=== PATIENT | female | born 1960 | race Caucasian/White ===

== ENCOUNTER → 2018-01-11 | Outpatient (CLI) | payer OTHER ==
[~2018-01-11] MED LIST: ACET500 PO; ACETAMINOPHEN; ALBU90OI INH; ALBU90OI61 INH; AMOCLA500 PO; AMOX500 PO; AZAT50 PO; Augmentin 875-1 EACH PO; BACL10 PO; BENZ100A PO; BIEST PO; BUPR75 PO; CHOL10002 PO; CONESTTC VAG; DESV50 PO; DIAZ10 PO; DULO60 PO; ESCI10; FISH1000 PO; GABA400; HYDACE5 PO; HYDACE5325 PO; HYDR1TAB94 PO; IBUP800 PO; Inderal 20 mg T20 MG PO; LEVFLO500 PO; LINE600 PO; LORA.5 PO; MAGCIT300 PO; MECL12.5; MECL25 PO; MEDIFIN EX100 MG/5 M PO; MELO7.5 PO; METHI10; METHI10 PO; METPHE10 PO; METPHE20; Methimazole5 MG PO; NAPROXEN; NORT25 PO; OXYACE5T PO; OXYC30 PO; PHENA200 PO; PRED20 PO; PREG150 PO; PROM25 PO; PROP10; Prednisone20 MG PO; RXOXYACE PO; SERT100; SULTRIDS PO; Sudogest30 MG PO; TOBR.3OPO OP; TUMERIC; Vicoprofen 2001 EACH PO; [UNRECOGNIZED DRUG - OTHER]
== END | disposition home or self-care (01) ==
LOC: LAB SHORT 09:46 → LAB EV 09:46
DX: N39.0 Urinary tract infection, site not specified (principal)
CPT/HCPCS: 87077; 87086; 87186

== ENCOUNTER 2018-02-16 09:35 | Emergency (ER) | payer OTHER ==
[~2018-02-16] VITALS: Ht 167.6 cm; Wt 83.5 kg
[2018-02-16] MEDS ORDERED: CLARITIN10 MG PO (09:47)
[2018-02-16] MEDS ORDERED: BACL10 PO (09:48)
[2018-02-16] MEDS ORDERED: TRAZ100 PO (09:48)
[2018-02-16] MEDS ORDERED: LEVSOD100 PO (09:49)
== END 2018-02-16 10:24 | disposition home or self-care (01) ==
LOC: ER 09:35
DX: D17.24 Benign lipomatous neoplasm of skin and subcutaneous tissue of left leg (principal); Z79.899 Other long term (current) drug therapy; F43.10 Post-traumatic stress disorder, unspecified; Z87.891 Personal history of nicotine dependence
CPT/HCPCS: 99282

== ENCOUNTER → 2018-03-10 | Outpatient (CLI) | payer OTHER ==
[~2018-03-10] MED LIST changes: +CLARITIN10 MG PO; +LEVSOD100 PO; +TRAZ100 PO
== END | disposition home or self-care (01) ==
LOC: LAB SHORT 10:57 → LAB EV 10:57
DX: N39.0 Urinary tract infection, site not specified (principal)
CPT/HCPCS: 87086

== ENCOUNTER 2018-03-22 11:15 | Emergency (ER) | payer OTHER ==
[~2018-03-22] VITALS: Ht 165.1 cm; Wt 83.9 kg
[~2018-03-22 11:15] MED LIST changes: +Flonase 0.05% N16 GM
[2018-03-22] MEDS ORDERED: Norco 5-325 Ta1 EACH PO (13:09)
== END 2018-03-22 13:20 | disposition home or self-care (01) ==
LOC: ER 11:15
DX: M54.2 Cervicalgia (principal); Z88.1 Allergy status to other antibiotic agents; Z79.899 Other long term (current) drug therapy; F43.10 Post-traumatic stress disorder, unspecified; Z87.891 Personal history of nicotine dependence
CPT/HCPCS: 96372; 99283; J1885

== ENCOUNTER → 2018-06-22 | Outpatient (CLI) | payer OTHER ==
[~2018-06-22] MED LIST changes: +ALL DAY ALLERGY10 M1 PO; +Norco 5-325 Ta1 EACH PO; +Norco 7.5-3251 EACH PO; +Tessalon200 MG PO
[2018-06-22 10:45] LABS: BASOPHILS ABSOLUTE AUTO 0.08 K/mm3 (0.00-0.23); BASOPHILS PERCENT AUTO 1 % (0-2); EOSINOPHILS ABSOLUTE AUTO 0.33 K/mm3 (0.00-0.68); EOSINOPHILS PERCENT AUTO 4 % (0-6); Hematocrit 40.2 % (33.0-51.0); Hemoglobin 14.3 g/dL (11.5-16.0); IMMATURE GRAN ABSOLUTE AUTO 0.05 K/mm3 (0.00-0.10); IMMATURE GRAN PERCENT AUTO 1 % (0-1); LYMPHOCYTES PERCENT AUTO 21 % (21-46); MONOCYTES ABSOLUTE AUTO 0.49 K/mm3 (0.16-1.47); MONOCYTES PERCENT AUTO 6 % (4-13); Mean Corpuscular HGB 34.5 pg (26.0-34.0); Mean Corpuscular HGB Conc 35.6 g/dL (31.5-36.5); Mean Corpuscular Volume 97 fL (80-100); Mean Platelet Volume 11.3 fL (9.1-12.4); NEUTROPHILS ABSOLUTE AUTO 6.08 K/mm3 (1.96-9.15); NEUTROPHILS PERCENT AUTO 68 % (41-73); Platelet Count 151 K/mm3 (150-400); RDW Coefficient Variation 12.2 % (11.7-14.2); RDW Standard Deviation 43.5 fL (35.1-46.3); Red Blood Cell Count 4.14 M/mm3 (3.80-5.20); White Blood Cell Count 8.93 K/mm3 (4.00-11.30)
[2018-06-22 11:01] LABS: Anion Gap 12 mmol/L (6-16); Blood Urea Nitrogen 10 mg/dL (8-24); CO2, Blood 25 mmol/L (21-32); Calcium, Blood 8.9 mg/dL (8.5-10.1); Chloride, Blood 104 mmol/L (98-108); Creatinine, Blood 0.77 mg/dL (0.40-1.00); Glomerular Filtration Rate >60 (60-); Glucose, Blood 95 mg/dL (70-99); Potassium, Blood 3.5 mmol/L (3.5-5.5); Sodium, Blood 141 mmol/L (136-145); Troponin I <0.017 ng/mL (0.000-0.040)
== END | disposition home or self-care (01) ==
LOC: LAB SHORT 10:38 → LAB EV 10:38
PROVIDERS: Physician Assistant Surgical
DX: R05 Cough (principal)
CPT/HCPCS: 80048; 84484; 85025

== ENCOUNTER 2018-07-20 09:54 | Emergency (ER) | payer OTHER ==
[~2018-07-20] VITALS: Ht 167.6 cm; Wt 86.2 kg
[~2018-07-20 09:54] MED LIST changes: -Norco 7.5-3251 EACH PO
[2018-07-20] MEDS ORDERED: Norco 7.5-3251 EACH PO (11:46)
== END 2018-07-20 11:52 | disposition home or self-care (01) ==
LOC: ER 09:54
DX: G89.29 Other chronic pain (principal); M54.5 Low back pain; Z88.1 Allergy status to other antibiotic agents; Z88.5 Allergy status to narcotic agent; Z79.899 Other long term (current) drug therapy; F43.10 Post-traumatic stress disorder, unspecified; Z87.891 Personal history of nicotine dependence
CPT/HCPCS: 96372; 99283-25; J1170; J1885

== ENCOUNTER 2018-10-11 06:45 | Day surgery (SDC) | payer OTHER ==
[~2018-10-11] VITALS: Ht 167.6 cm; Wt 83.0 kg
[~2018-10-11 06:45] MED LIST changes: +Norco 7.5-3251 EACH PO
[2018-10-11] MEDS ORDERED: GABA400 PO (07:18)
[2018-10-11] MEDS ORDERED: PENNSAID2 GM TOP (07:19)
--- NOTE | 2018-10-11 07:26 | NUR ---
10/11/18 0726 Pricila Eid V PT RESTING IN BED, SIDE RAILS IN PLACE, CALL LIGHT WITHIN REACH, VSS. PT'S FAMILY AT BEDSIDE. PT DENIES PAIN, DISCOMFORT AND QUESTIONS AT THIS TIME. WARM BLANKET GIVEN FOR COMFORT.
--- NOTE | 2018-10-11 14:34 | NUR ---
10/11/18 1434 Debbie Gonzalez LATE ENTRY FOR TODAY DURING COLONOSCOPY COLONOSCOPY ABORTED DUE TO POOR PREP.
== END 2018-10-11 08:45 | disposition home or self-care (01) ==
LOC: ORSCSDS 06:45
PROVIDERS: Internal Medicine Gastroenterology
PROC: 0DJ08ZZ Inspection of Upper Intestinal Tract, Via Natural or Artificial Opening Endoscopic (ICD-10-PCS; principal; 2018-10-11 08:00)
PROC: 0DJD8ZZ Inspection of Lower Intestinal Tract, Via Natural or Artificial Opening Endoscopic (ICD-10-PCS; principal; 2018-10-11 08:00)
DX: Z13.810 Encounter for screening for upper gastrointestinal disorder (principal); I86.4 Gastric varices; K74.60 Unspecified cirrhosis of liver; Z86.010 Personal history of colon polyps; B19.20 Unspecified viral hepatitis C without hepatic coma; E05.90 Thyrotoxicosis, unspecified without thyrotoxic crisis or storm; F41.1 Generalized anxiety disorder; Z87.891 Personal history of nicotine dependence; G47.33 Obstructive sleep apnea (adult) (pediatric); J44.9 Chronic obstructive pulmonary disease, unspecified; Z79.899 Other long term (current) drug therapy
CPT/HCPCS: J0330; J1980; J2405; J2704; J7120

== ENCOUNTER 2018-12-08 09:52 | Emergency (ER) | payer OTHER ==
[~2018-12-08] VITALS: Ht 167.6 cm; Wt 85.7 kg
[~2018-12-08 09:52] MED LIST changes: +GABA400 PO; +PENNSAID2 GM TOP
[2018-12-08] MEDS ORDERED: CYCL10 PO (10:43)
[2018-12-08] MEDS ORDERED: Percocet 5-3251 EACH PO ×2 (10:43→11:48)
== END 2018-12-08 11:15 | disposition home or self-care (01) ==
LOC: ER 09:52
DX: G89.29 Other chronic pain (principal); M54.5 Low back pain; Z88.8 Allergy status to other drugs, medicaments and biological substances; Z79.899 Other long term (current) drug therapy; Z87.440 Personal history of urinary (tract) infections; Z87.891 Personal history of nicotine dependence
CPT/HCPCS: 96374; 99283-25; J1170

== ENCOUNTER 2019-01-17 14:25 | Emergency (ER) | payer OTHER ==
[~2019-01-17] VITALS: Ht 167.6 cm; Wt 83.0 kg
[~2019-01-17 14:25] MED LIST changes: +CYCL10 PO; +Percocet 5-3251 EACH PO
[2019-01-17] MEDS ORDERED: Robaxin500 MG PO (15:25)
[2019-01-24] MEDS ORDERED: TRAZ100 PO (10:19)
[2019-01-24] MEDS ORDERED: LEVSOD100 PO (10:19)
[2019-01-24] MEDS ORDERED: DULO60 PO (10:19)
[2019-01-24] MEDS ORDERED: AZAT50 PO (10:20)
[2019-01-24] MEDS ORDERED: Flonase 0.05% N16 GM (10:20)
[2019-01-24] MEDS ORDERED: ACET500 PO (10:21)
[2019-01-24] MEDS ORDERED: Tessalon200 MG PO (10:21)
[2019-01-24] MEDS ORDERED: BACL10 PO (10:21)
[2019-01-24] MEDS ORDERED: TRAM50 PO (10:22)
[2019-01-24] MEDS ORDERED: GABA300 PO (10:22)
[2019-01-24] MEDS ORDERED: ALL DAY ALLERGY10 M1 PO (10:22)
== END 2019-01-17 15:39 | disposition home or self-care (01) ==
LOC: ER 14:25
DX: M54.41 Lumbago with sciatica, right side (principal); G89.29 Other chronic pain; M19.90 Unspecified osteoarthritis, unspecified site; F43.10 Post-traumatic stress disorder, unspecified; Z88.8 Allergy status to other drugs, medicaments and biological substances; Z79.899 Other long term (current) drug therapy; Z86.19 Personal history of other infectious and parasitic diseases; Z87.891 Personal history of nicotine dependence
CPT/HCPCS: 96372; 99283-25; J1885

== ENCOUNTER 2019-01-31 12:36 | Day surgery (SDC) | payer OTHER ==
[~2019-01-31] VITALS: Ht 167.6 cm; Wt 83.5 kg
[~2019-01-31 12:36] MED LIST changes: +GABA300 PO; +Robaxin500 MG PO; +TRAM50 PO
[2019-01-31] MEDS ORDERED: NADO20 PO (13:18)
[2019-01-31] MEDS ORDERED: PROP10 PO (13:19)
--- NOTE | 2019-01-31 14:16 | NUR ---
01/31/19 1416 Mari Rodríguez REPORT RECEIVED FROM BRITNEY KATHLEEN. WENT DOWN AND INTRODUCED MYSELF TO THE PATIENT. AFTER CHATTING, SHE ASKED TO GO TO THE BATHROOM SO I ASSISTED HER UP AND BACK. GAVE HER A WARM BLANKET AND GOT HER SITUATED BACK IN BED. UPDATED HER THAT THE ROOM IS RUNNING A LITTLE BEHIND AND SHE VERBALIZED HER UNDERSTANDING
--- NOTE | 2019-01-31 16:16 | NUR ---
01/31/19 4026 Mari Rodríguez LATE ENTRY---PATIENT DID HAVE DISTENDED ABDOMEN AND DID C/O PAIN THAT SHE RATED 4/10. SHE EXPLAINED THAT SHE FELT LIKE "THERE IS AIR IN MY BELLY". I EXPLAINED TO HER ABOUT THE CO2 THAT IS USED TO INFLATE THE COLON. I ASKED HER IF THE 4/10 WAS TOLERABLE LEVEL FOR HER AND SHE STATED YES THAT SHE WOULD JUST TAKE SOME TYLENOL WHEN SHE GOT HOME. I EXPLAINED TO HER AND HER SPOUSE THAT IF PAIN INCREASED SHE SHOULD CALL DR SEXTON LATER THIS EVENING. AND SPOUSE BOTH VERBALIZED UNDERSTANDING. PATIENT WAS DISCHARGED IN STABLE CONDITION
== END 2019-01-31 16:01 | disposition home or self-care (01) ==
LOC: ORSCSDS 12:36
PROVIDERS: Internal Medicine Gastroenterology
PROC: 0DBK8ZX Excision of Ascending Colon, Via Natural or Artificial Opening Endoscopic, Diagnostic (ICD-10-PCS; principal; 2019-01-31 14:00)
PROC: 0DBN8ZX Excision of Sigmoid Colon, Via Natural or Artificial Opening Endoscopic, Diagnostic (ICD-10-PCS; principal; 2019-01-31 14:00)
DX: Z12.11 Encounter for screening for malignant neoplasm of colon (principal); Z86.010 Personal history of colon polyps; D12.2 Benign neoplasm of ascending colon; K63.5 Polyp of colon; K57.30 Diverticulosis of large intestine without perforation or abscess without bleeding; K64.8 Other hemorrhoids; I10 Essential (primary) hypertension; Z87.891 Personal history of nicotine dependence; Z79.899 Other long term (current) drug therapy
CPT/HCPCS: 88305; J2704; J7120

== ENCOUNTER → 2019-02-02 | Outpatient (CLI) | payer OTHER ==
[~2019-02-02] MED LIST changes: +ASPI81CH PO; +ATEN25 PO; +DICLOFENAC SOD100 G1 TOP; +DOCU100 PO; +HYDHCL25 PO; +NADO20 PO; +PANT20 PO; +PROP10 PO
== END | disposition home or self-care (01) ==
LOC: LAB EV 16:34 → LAB SHORT 16:34
DX: N39.0 Urinary tract infection, site not specified (principal)
CPT/HCPCS: 87077; 87086; 87186

== ENCOUNTER → 2019-02-17 | Outpatient (CLI) | payer OTHER | END | disposition home or self-care (01) | LOC: LAB SHORT 10:21 → LAB EV 10:21 | DX: N39.0 Urinary tract infection, site not specified (principal) | CPT/HCPCS: 87086 ==

== ENCOUNTER 2019-03-11 11:15 | Observation (INO) | payer OTHER ==
[~2019-03-11] VITALS: Ht 160 cm; Wt 81.6 kg
[~2019-03-11 11:15] MED LIST changes: -ASPI81CH PO; -ATEN25 PO; -DICLOFENAC SOD100 G1 TOP; -DOCU100 PO; -HYDHCL25 PO; -PANT20 PO
[2019-03-11 11:54] LABS: BASOPHILS ABSOLUTE AUTO 0.08 K/mm3 (0.00-0.23); BASOPHILS PERCENT AUTO 1 % (0-2); EOSINOPHILS ABSOLUTE AUTO 0.24 K/mm3 (0.00-0.68); EOSINOPHILS PERCENT AUTO 1 % (0-6); Hemoglobin 16.3 g/dL (11.5-16.0); IMMATURE GRAN ABSOLUTE AUTO 0.09 K/mm3 (0.00-0.10); IMMATURE GRAN PERCENT AUTO 1 % (0-1); LYMPHOCYTES ABSOLUTE AUTO 2.39 K/mm3 (0.84-5.20); LYMPHOCYTES PERCENT AUTO 14 % (21-46); MONOCYTES ABSOLUTE AUTO 1.22 K/mm3 (0.16-1.47); MONOCYTES PERCENT AUTO 7 % (4-13); Mean Corpuscular HGB 32.7 pg (26.0-34.0); Mean Corpuscular HGB Conc 34.7 g/dL (31.5-36.5); Mean Corpuscular Volume 94 fL (80-100); Mean Platelet Volume 11.5 fL (9.1-12.4); NEUTROPHILS PERCENT AUTO 77 % (41-73); Platelet Count 228 K/mm3 (150-400); RDW Coefficient Variation 12.5 % (11.7-14.2); RDW Standard Deviation 43.3 fL (35.1-46.3); Red Blood Cell Count 4.98 M/mm3 (3.80-5.20); White Blood Cell Count 17.42 K/mm3 (4.00-11.30)
[2019-03-11 12:09] LABS: Troponin I 0.311 ng/mL (0.000-0.040)
[2019-03-11 12:16] LABS: Alanine Aminotransfer (ALT/SGP 20 U/L (12-78); Albumin, Blood 4.1 g/dL (3.4-5.0); Alk Phos 58 U/L (50-136); Anion Gap 7 mmol/L (6-16); Aspartate Aminotrans (AST/SGOT 26 U/L (12-37); Bilirubin, Total 0.7 mg/dL (0.1-1.0); Blood Urea Nitrogen 11 mg/dL (8-24); Bun/Creatinine Ratio 16.2 (12.0-20.0); CO2, Blood 28 mmol/L (21-32); Calcium, Blood 9.6 mg/dL (8.5-10.1); Chloride, Blood 105 mmol/L (98-108); Creatinine, Blood 0.68 mg/dL (0.40-1.00); Globulin, Blood 4.2 g/dL (2.2-4.0); Glomerular Filtration Rate >60 (60-); Glucose, Blood 115 mg/dL (70-99); Potassium, Blood 3.7 mmol/L (3.5-5.5); Sodium, Blood 140 mmol/L (136-145); Total Protein, Blood 8.3 g/dL (6.4-8.2)
[2019-03-11] MEDS ORDERED: HYDHCL25 PO (14:03)
[2019-03-11] MEDS ORDERED: CYCL10 PO (14:04)
[2019-03-11] MEDS ORDERED: DOCU100 PO (14:05)
[2019-03-11] MEDS ORDERED: DICLOFENAC SOD100 G1 TOP (14:05)
[2019-03-11] MEDS ORDERED: ALBU90OI INH (14:06)
--- NOTE | 2019-03-11 16:32 | NUR ---
PT ADMIT TO ICU FROM ED W/ C/O CHEST PAIN AND SOB. PT TRANSPORTED VIA IMAGING FOR CT. PT REPORT PAIN 8/10 ON 0-10 PAIN SCALE. FENTANYL 25 MCG IV GIVEN PRIOR TO TRANSPORT. UPON ARRIVAL BACK TO UNIT PT REPORT PAIN LEVEL 3/10 ON 0-10 PAIN SCALE REGARDING HER CHEST WALL DISCOMFORT.
[2019-03-11 20:12] LABS: Troponin I 0.238 ng/mL (0.000-0.040)
[2019-03-11 20:15] LABS: Creatine Kinase MB 1.3 ng/mL (0.0-3.6); Creatine Kinase MB Index 2.5 (0.0-4.0)
--- NOTE | 2019-03-11 21:13 | NUR ---
START OF SHIFT: REPORT FROM SUSANA RN/SAVANA RN. PT SITTING UP IN BED EATING EVENING MEAL AT THAT TIME WITH NO COMPLAINTS. SPOUSE AT BEDSIDE. PT LEFT ALONE AT THAT TIME TO FINISH MEAL AND CONVERSE WITH SPOUSE. WHEN THIS RN RETURNED TO ROOM FOR SHIFT ASSESSMENT AND MEDICATION VERIFICATION, PT SITTING UP IN BED C/O CP AND DIFFIUCLTY BREATHING. PT RATED PAIN 8/10, SHARP, AND POINTED TO MID-UPPER STERNUM. PT STATED THAT THE PAIN IS SAME BEFORE. 02 VIA N/C 2L APPLIED AND DILAUDID 0.5mg IVP GIVEN. PT PAIN WENT DOWN TO 3/10 AND PT ABLE TO CONVERSE ON HER PHONE WITHOUT DIFFICULTY. LS CLEAR, VSS. TROPONIN IMPROVED TO 0.238; CKMB AND CREA. KINASE WNL. LATER IN SHIFT PT GIVEN NOC MEDS WITH PT REFUSING ATARAX AND STATED DOES NOT TAKE [id number] DC'D FROM [facility]. PT UP TO TOILET AND PREPARED FOR SLEEP. CPAP AT BEDSIDE. PT STATED HAS A SIGNIFICANT AMOUT OF ANXIETY R/T INFORMATION RECEIVED FROM, "THE DOCTOR TELLING ME THAT I HAVE A LUNG MASS SHOWING ON THE XRAY". CALL LIGHT IN HAND. CPAP AT BEDSIDE. VSS. WILL CONTINUE TO MONITOR.
--- NOTE | 2019-03-11 23:19 | NUR ---
LOW SATS: PT SLEEPING WITH CPAP ON. SATS 88-90%. CHRIS RT TO BEDSIDE TO TROUBLE SHOOT CPAP. RT ADDED 3L O2 BLEED IN. PT INFORMED OF O2 ADDED TO CPAP BUT SETTINGS NOT CHANGED ON CPAP MACHINE. SATS CURRENTLY 94% WITH 02 BLEED-IN.
--- NOTE | 2019-03-12 00:35 | NUR ---
PT INDEPENDENT IN BED, TURNING SELF WITHOUT DIFFICULTY. SATS REMAIN 94% WITH 3L BLEED IN WTIH NO DESATURATIONS THUS FAR.
--- NOTE | 2019-03-12 03:24 | NUR ---
PT C/O PAIN C/ URINATION AND STATES, "IT FEELS LIKE A UTI". WILL PASS ON TO DAY SHIFT TO POSSIBLY GET A UA ORDERED.
[2019-03-12 03:27] LABS: BASOPHILS ABSOLUTE AUTO 0.06 K/mm3 (0.00-0.23); BASOPHILS PERCENT AUTO 1 % (0-2); EOSINOPHILS ABSOLUTE AUTO 0.21 K/mm3 (0.00-0.68); EOSINOPHILS PERCENT AUTO 2 % (0-6); Hematocrit 39.9 % (33.0-51.0); Hemoglobin 13.8 g/dL (11.5-16.0); IMMATURE GRAN ABSOLUTE AUTO 0.06 K/mm3 (0.00-0.10); IMMATURE GRAN PERCENT AUTO 1 % (0-1); LYMPHOCYTES ABSOLUTE AUTO 2.34 K/mm3 (0.84-5.20); LYMPHOCYTES PERCENT AUTO 21 % (21-46); MONOCYTES ABSOLUTE AUTO 1.12 K/mm3 (0.16-1.47); MONOCYTES PERCENT AUTO 10 % (4-13); Mean Corpuscular HGB 32.7 pg (26.0-34.0); Mean Corpuscular HGB Conc 34.6 g/dL (31.5-36.5); Mean Corpuscular Volume 95 fL (80-100); Mean Platelet Volume 11.3 fL (9.1-12.4); NEUTROPHILS ABSOLUTE AUTO 7.34 K/mm3 (1.96-9.15); NEUTROPHILS PERCENT AUTO 66 % (41-73); Platelet Count 139 K/mm3 (150-400); RDW Coefficient Variation 12.3 % (11.7-14.2); RDW Standard Deviation 42.6 fL (35.1-46.3); Red Blood Cell Count 4.22 M/mm3 (3.80-5.20); White Blood Cell Count 11.13 K/mm3 (4.00-11.30)
[2019-03-12 03:41] LABS: Anion Gap 8 mmol/L (6-16); Blood Urea Nitrogen 12 mg/dL (8-24); Bun/Creatinine Ratio 17.2 (12.0-20.0); CO2, Blood 27 mmol/L (21-32); Calcium, Blood 8.5 mg/dL (8.5-10.1); Chloride, Blood 106 mmol/L (98-108); Glomerular Filtration Rate >60 (60-); Glucose, Blood 125 mg/dL (70-99); Potassium, Blood 3.6 mmol/L (3.5-5.5); Sodium, Blood 141 mmol/L (136-145)
[2019-03-12 03:44] LABS: Creatine Kinase MB 1.1 ng/mL (0.0-3.6); Creatine Kinase MB Index 2.7 (0.0-4.0); Troponin I 0.133 ng/mL (0.000-0.040)
--- NOTE | 2019-03-12 04:18 | NUR ---
PT C/O UTI PAIN INCREASED TO 9/10 SHARP PAIN. HOSPITALIST NOTIFIED. NEW ORDERS FOR U/A AND PYRIDIUM ORDERED. PT ABLE TO PROVIDE FOR U/A AND WAS MEDICATED WITH FENTANYL FOR THE UTI PAIN. U/A SENT. WILL CONTINUE TO MONITOR. CALL LIGHT WITHIN REACH.
[2019-03-12 04:24] LABS: Source, Urine Clean Catch
[2019-03-12 04:26] LABS: Bilirubin, Urine Neg (Neg); Blood, Urine 5+ (Neg); Glucose Qualitative, Urine Neg (Neg); Ketones, Urine Neg (Neg); Leukocyte Esterase, Urine 3+ (Neg); Nitrite, Urine Neg (Neg); Protein, Urine 2+ (Neg); Urobilinogen, Urine NORM (Normal)
[2019-03-12 04:31] LABS: Appearance, Urine Cloudy (Clear); Color, Urine Amber (P-Yellow)
[2019-03-12 04:32] LABS: White Blood Cells, Urine TNTC /hpf (0-5)
[2019-03-12 04:33] LABS: Bacteria Many /hpf; Red Blood Cells, Urine 0-2 /hpf (0-2); Squamous Epithelial Cells Not Seen /hpf (Few)
--- NOTE | 2019-03-12 08:00 | NUR ---
Recieved report from Ariadne TAN. Patient up to [facility] with assist of PCT. after getting back to bed states chest pain with increased inspirations. She is on RA and sats mid 90%'s. She ana any current needs. She is alert and oriented and is able to communicate her needs. Family at bedside. VSS, she wants to continue to rest.
--- NOTE | 2019-03-12 10:03 | NUR ---
Echocardiogram completed.
--- NOTE | 2019-03-12 10:38 | NUR ---
Patient denies shower currently. ECHO done. Dr Rosales by to see patient and family. Medicated with Totradol for plueretic pain and pain increases with inspiration 7/10 and lives with 7-8/10 back pain, the only stated difference it does not ussually hurt to breath. She is currently resting on left side. VSS
--- NOTE | 2019-03-12 13:19 | NUR ---
Patient sitting up in bed talking with family. She shows no signs of distress, but states chest pain midsternal radiating around right side of neck to her back and has chronic back pain, still states 01/15. She ate 100% of lunch and 400ml liquids.
[2019-03-12] MEDS ORDERED: ATEN25 PO (15:56)
[2019-03-12] MEDS ORDERED: ASPI81CH PO (15:56)
[2019-03-12] MEDS ORDERED: IBUP800 PO (15:57)
[2019-03-12] MEDS ORDERED: PANT20 PO (15:58)
--- NOTE | 2019-03-12 16:16 | NUR ---
Dr Rosales by and discharged patient home. She was given written discharge instructions and reviewed new meds that were called into [facility]. Her and family returned understanding of all information discussed and reviewed. IV pulled from left AC and gauze placed and wrapped in coban. Patient requested to abulate to exit and went home POV.
--- NOTE | 2019-03-12 17:05 | NUR ---
Per admit bere, I met with Tahmina and her spouse to offer prayer and encouragement. Tahmina was tearful and expresed fear of dx and future. She responded well to gentle branch credit counselor, spiritual direction, and prayer. She is being d/c soon.
== END 2019-03-12 16:15 | disposition home or self-care (01) ==
LOC: ER 11:15 → ICUW 11:16 → ER 12:53 → ICUW 13:54 → ENPENDDIS 03-12 15:37 → ICUW 03-12 16:15
PROVIDERS: Emergency Medicine; Family Medicine; ADMIT Internal Medicine
DX: R07.81 Pleurodynia (principal); R06.02 Shortness of breath; M06.9 Rheumatoid arthritis, unspecified; G47.33 Obstructive sleep apnea (adult) (pediatric); F43.10 Post-traumatic stress disorder, unspecified; E03.9 Hypothyroidism, unspecified; K59.09 Other constipation; K74.60 Unspecified cirrhosis of liver; E66.9 Obesity, unspecified; Z86.19 Personal history of other infectious and parasitic diseases; Z99.89 Dependence on other enabling machines and devices; Z88.8 Allergy status to other drugs, medicaments and biological substances; Z79.899 Other long term (current) drug therapy; Z68.32 Body mass index [BMI] 32.0-32.9, adult
CPT/HCPCS: 36415; 71046; 71260; 80048; 80053; 81001; 82550; 82553; 84145; 84484; 85025; 85651; 87077; 87086; 87186; 93005; 93010; 93306; 96374; 99285-25; G0378; J1170; J1650; J1885; J3010; J7030; J7500; Q9967

== ENCOUNTER → 2019-04-24 | Outpatient (CLI) | payer OTHER ==
[~2019-04-24] MED LIST changes: +ASPI81CH PO; +ATEN25 PO; +DICLOFENAC SOD100 G1 TOP; +DOCU100 PO; +HYDHCL25 PO; +PANT20 PO
[2019-04-24 12:01] LABS: BASOPHILS ABSOLUTE AUTO 0.07 K/mm3 (0.00-0.23); BASOPHILS PERCENT AUTO 1 % (0-2); EOSINOPHILS ABSOLUTE AUTO 0.25 K/mm3 (0.00-0.68); EOSINOPHILS PERCENT AUTO 3 % (0-6); Hematocrit 37.8 % (33.0-51.0); Hemoglobin 13.3 g/dL (11.5-16.0); IMMATURE GRAN ABSOLUTE AUTO 0.04 K/mm3 (0.00-0.10); IMMATURE GRAN PERCENT AUTO 0 % (0-1); LYMPHOCYTES ABSOLUTE AUTO 2.17 K/mm3 (0.84-5.20); LYMPHOCYTES PERCENT AUTO 23 % (21-46); MONOCYTES ABSOLUTE AUTO 0.73 K/mm3 (0.16-1.47); MONOCYTES PERCENT AUTO 8 % (4-13); Mean Corpuscular HGB 33.2 pg (26.0-34.0); Mean Corpuscular HGB Conc 35.2 g/dL (31.5-36.5); Mean Corpuscular Volume 94 fL (80-100); Mean Platelet Volume 11.7 fL (9.1-12.4); NEUTROPHILS ABSOLUTE AUTO 6.39 K/mm3 (1.96-9.15); NEUTROPHILS PERCENT AUTO 66 % (41-73); Platelet Count 208 K/mm3 (150-400); RDW Coefficient Variation 12.4 % (11.7-14.2); RDW Standard Deviation 43.2 fL (35.1-46.3); Red Blood Cell Count 4.01 M/mm3 (3.80-5.20); White Blood Cell Count 9.65 K/mm3 (4.00-11.30)
[2019-04-24 12:37] LABS: Alanine Aminotransfer (ALT/SGP 20 U/L (12-78); Albumin, Blood 3.2 g/dL (3.4-5.0); Albumin/Globulin Ratio 0.7 (0.8-1.8); Alk Phos 63 U/L (40-126); Anion Gap 10 mmol/L (6-16); Aspartate Aminotrans (AST/SGOT 21 U/L (12-37); Bilirubin, Total 0.4 mg/dL (0.1-1.0); Blood Urea Nitrogen 9 mg/dL (8-24); Bun/Creatinine Ratio 11.3 (12.0-20.0); CO2, Blood 25 mmol/L (21-32); Calcium, Blood 8.7 mg/dL (8.5-10.1); Chloride, Blood 106 mmol/L (98-108); Globulin, Blood 4.7 g/dL (2.2-4.0); Glomerular Filtration Rate >60 (60-); Glucose, Blood 140 mg/dL (70-99); Potassium, Blood 3.7 mmol/L (3.5-5.5); Sodium, Blood 141 mmol/L (136-145); Total Protein, Blood 7.9 g/dL (6.4-8.2)
== END | disposition home or self-care (01) ==
LOC: LAB SHORT 11:57 → LAB EV 11:57
PROVIDERS: Physician Assistant
DX: N39.0 Urinary tract infection, site not specified (principal); R53.83 Other fatigue
CPT/HCPCS: 80053; 84443; 85025; 87077; 87086; 87186

== ENCOUNTER → 2019-06-30 | Outpatient (CLI) | payer OTHER ==
[~2019-06-30] MED LIST changes: +Cymbalta60 MG PO; +LORA2; +TRAZ50 PO; +ZYRTEC10 M2 PO
== END | disposition home or self-care (01) ==
LOC: LAB EV 15:00 → LAB SHORT 15:00
DX: N39.0 Urinary tract infection, site not specified (principal)
CPT/HCPCS: 87077; 87086; 87186

== ENCOUNTER 2019-08-08 10:04 | Day surgery (SDC) | payer OTHER ==
[~2019-08-08] VITALS: Ht 165.1 cm; Wt 82.9 kg
[2019-08-08] MEDS ORDERED: DOC250 PO (10:52)
[2019-08-08] MEDS ORDERED: Voltaren100 GM TOP (10:52)
[2019-08-08] MEDS ORDERED: CYCL10 PO (10:52)
--- NOTE | 2019-08-08 13:13 | NUR ---
08/08/19 1313 MARIANNE PAINTER PATIENT UP TO BATHROOM VIA WC WITH THIS RN. PATIENT ABLE TO VOID LIGHT YELLOW, PINKISH URINE.
== END 2019-08-08 13:42 | disposition home or self-care (01) ==
LOC: ORSCSDS 10:04
PROVIDERS: Obstetrics & Gynecology
PROC: 0UJD4ZZ Inspection of Uterus and Cervix, Percutaneous Endoscopic Approach (ICD-10-PCS; principal; 2019-08-08 11:00)
PROC: 0UDB7ZX Extraction of Endometrium, Via Natural or Artificial Opening, Diagnostic (ICD-10-PCS; principal; 2019-08-08 11:00)
PROC: 0UJD8ZZ Inspection of Uterus and Cervix, Via Natural or Artificial Opening Endoscopic (ICD-10-PCS; principal; 2019-08-08 11:00)
DX: N95.0 Postmenopausal bleeding (principal); N80.3 Endometriosis of pelvic peritoneum; N84.0 Polyp of corpus uteri; D25.9 Leiomyoma of uterus, unspecified; N94.10 Unspecified dyspareunia; R10.2 Pelvic and perineal pain; G47.33 Obstructive sleep apnea (adult) (pediatric); Z86.19 Personal history of other infectious and parasitic diseases; E03.9 Hypothyroidism, unspecified; F41.8 Other specified anxiety disorders; Z79.82 Long term (current) use of aspirin; Z79.899 Other long term (current) drug therapy
CPT/HCPCS: 88305; J0171; J0360; J0690; J1100; J2250; J2405; J2704; J2710; J2765; J3010; J7120

== ENCOUNTER → 2019-09-14 | Outpatient (CLI) | payer OTHER ==
[~2019-09-14] MED LIST changes: +DOC250 PO; +Voltaren100 GM TOP
== END | disposition home or self-care (01) ==
LOC: LAB SHORT 14:18 → LAB EV 14:18
DX: R30.9 Painful micturition, unspecified (principal)
CPT/HCPCS: 87077; 87086; 87186

== ENCOUNTER → 2019-10-02 | Outpatient (CLI) | payer OTHER | END | disposition home or self-care (01) | LOC: LAB EV 13:35 → LAB SHORT 13:35 | DX: N10 Acute pyelonephritis (principal); N39.0 Urinary tract infection, site not specified | CPT/HCPCS: 87077; 87086; 87186 ==

== ENCOUNTER → 2019-11-05 | Outpatient (CLI) | payer OTHER | END | disposition home or self-care (01) | LOC: LAB EV 13:23 → LAB SHORT 13:23 | DX: N39.0 Urinary tract infection, site not specified (principal) | CPT/HCPCS: 87077; 87086; 87186 ==

== ENCOUNTER → 2020-05-01 | Outpatient (CLI) | payer OTHER ==
[~2020-05-01] MED LIST changes: +LACT10SY PO; +LAMO100 PO; +Milk Of Ma400 MG/5 M PO; +SENN187 PO; +SIME80CH PO
== END ==
LOC: LAB SHORT 15:34 → LAB EV 15:34
DX: N39.0 Urinary tract infection, site not specified (principal)
CPT/HCPCS: 87077; 87086; 87186

== ENCOUNTER 2020-05-15 14:24 | Emergency (ER) | payer OTHER ==
[~2020-05-15] VITALS: Ht 167.6 cm; Wt 79.4 kg
[~2020-05-15 14:24] MED LIST changes: -LACT10SY PO
== END 2020-05-15 15:05 | disposition left against medical advice (07) ==
LOC: ER 14:24
DX: G89.29 Other chronic pain (principal); M54.5 Low back pain; Z88.1 Allergy status to other antibiotic agents; Z87.891 Personal history of nicotine dependence; Z79.899 Other long term (current) drug therapy
CPT/HCPCS: 99282

== ENCOUNTER 2020-05-18 06:43 | Day surgery (SDC) | payer OTHER ==
[~2020-05-18] VITALS: Ht 165.1 cm; Wt 78.4 kg
[2020-05-18] MEDS ORDERED: BACL10 PO (07:40)
[2020-05-18] MEDS ORDERED: LACT10SY PO (07:43)
--- NOTE | 2020-05-18 08:39 | NUR ---
05/18/20 0839 Gucci Jordan 1 MG EPI ADDED TO EACH OF THE FIRST 3 BAGS OF LR FOR IRRIGATION.
--- NOTE | 2020-05-18 11:27 | NUR ---
05/18/20 Josephine Garner INTERSCALENE NERVE BLOCK PERFORMED IN PRE-OP 0749: TIME OUT CONDUCTED 0750: SITE CHECK CONFIRMED, PROCEDURE START 0756: PROCEDURE END 6L/MIN VIA NON-REBREATHER & PULSE OX ON THROUGHOUT PROCEDURE. PT TOLERATED WELL, NO ISSUES OR COMPLICATIONS. DR. HOOD ADMINISTERED 2MG VERSED IVP & 100MCG FENTANYL IVP PRIOR TO START OF BLOCK.
== END 2020-05-18 10:20 | disposition home or self-care (01) ==
LOC: ORSCSDS 06:43
PROVIDERS: Orthopaedic Surgery
PROC: 0RBJ4ZZ Excision of Right Shoulder Joint, Percutaneous Endoscopic Approach (ICD-10-PCS; principal; 2020-05-18 08:00)
PROC: 0LS34ZZ Reposition Right Upper Arm Tendon, Percutaneous Endoscopic Approach (ICD-10-PCS; principal; 2020-05-18 08:00)
PROC: 0RNJ4ZZ Release Right Shoulder Joint, Percutaneous Endoscopic Approach (ICD-10-PCS; principal; 2020-05-18 08:00)
PROC: 0LQ14ZZ Repair Right Shoulder Tendon, Percutaneous Endoscopic Approach (ICD-10-PCS; principal; 2020-05-18 08:00)
DX: S46.001A Unspecified injury of muscle(s) and tendon(s) of the rotator cuff of right shoulder, initial encounter (principal); M75.21 Bicipital tendinitis, right shoulder; M75.41 Impingement syndrome of right shoulder; B19.20 Unspecified viral hepatitis C without hepatic coma; E05.00 Thyrotoxicosis with diffuse goiter without thyrotoxic crisis or storm; G47.33 Obstructive sleep apnea (adult) (pediatric); I10 Essential (primary) hypertension; Z79.899 Other long term (current) drug therapy; J44.9 Chronic obstructive pulmonary disease, unspecified; Z87.891 Personal history of nicotine dependence
CPT/HCPCS: C1713; J0171; J0690; J1100; J2250; J2310; J2405; J2704; J3010; J7120

== ENCOUNTER → 2020-06-02 | Outpatient (CLI) | payer OTHER ==
[~2020-06-02] MED LIST changes: +LACT10SY PO
== END | disposition home or self-care (01) ==
LOC: LAB EV 16:41 → LAB SHORT 16:41
DX: N39.0 Urinary tract infection, site not specified (principal)
CPT/HCPCS: 87086

== ENCOUNTER → 2020-08-15 | Outpatient (CLI) | payer MEDICARE, OTHER | END | disposition home or self-care (01) | LOC: LAB SHORT 12:35 → PLD 12:35 | DX: R30.0 Dysuria (principal) | CPT/HCPCS: 87086 ==

== ENCOUNTER → 2020-09-30 | Outpatient (CLI) | payer MEDICARE, OTHER | END | disposition home or self-care (01) | LOC: LAB EV 16:35 → LAB SHORT 16:35 | DX: N39.0 Urinary tract infection, site not specified (principal) | CPT/HCPCS: 87086 ==

== ENCOUNTER 2020-12-04 20:02 | Emergency (ER) | payer MEDICARE, OTHER ==
[~2020-12-04] VITALS: Ht 167.6 cm; Wt 80.7 kg
[2020-12-04] MEDS ORDERED: Norco 5-325 Ta1 EACH PO (23:03)
[2020-12-04] MEDS ORDERED: Prednisone20 MG PO (23:03)
== END 2020-12-05 00:22 | disposition home or self-care (01) ==
LOC: ER 20:02
DX: M54.16 Radiculopathy, lumbar region (principal); Z79.899 Other long term (current) drug therapy; Z88.8 Allergy status to other drugs, medicaments and biological substances; Z87.891 Personal history of nicotine dependence
CPT/HCPCS: 96372; 99283-25; A9270; J1170; J7512

== ENCOUNTER → 2021-03-31 | Outpatient (CLI) | payer MEDICARE, OTHER | END | disposition home or self-care (01) | LOC: LAB 15:38 → LAB SHORT 15:38 | DX: N39.0 Urinary tract infection, site not specified (principal) | CPT/HCPCS: 87077; 87086; 87186 ==

== ENCOUNTER → 2021-06-11 | Outpatient (CLI) | payer MEDICARE, OTHER ==
[2021-06-12 13:02] LABS: G. vaginalis (DNA Probe) Positive (NEGATIVE); T. vaginalis (DNA Probe) Negative (NEGATIVE)
[2021-06-12 13:03] LABS: Candida species (DNA Probe) Negative (NEGATIVE)
[2021-06-13 00:07] LABS: CHLAMYDIA TRACHOMATIS, NAA Negative (Negative)
== END | disposition home or self-care (01) ==
LOC: LAB SHORT 08:00
PROVIDERS: Nurse Practitioner Family
DX: N30.01 Acute cystitis with hematuria (principal); N89.8 Other specified noninflammatory disorders of vagina; R30.0 Dysuria
CPT/HCPCS: 87070; 87077; 87086; 87186; 87205; 87480; 87491; 87510; 87591; 87660

== ENCOUNTER → 2021-07-28 | Outpatient (CLI) | payer MEDICARE, OTHER | END | disposition home or self-care (01) | LOC: LAB SHORT 07:39 | DX: R30.0 Dysuria (principal) | CPT/HCPCS: 87086 ==

== ENCOUNTER 2021-08-11 07:54 | Day surgery (SDC) | payer MEDICARE, OTHER ==
[~2021-08-11] VITALS: Ht 167.6 cm; Wt 76.4 kg
[2021-08-11] MEDS ORDERED: NADO20 (08:55)
[2021-08-11] MEDS ORDERED: ATIVAN0.5 MG (09:01)
[2021-08-11] MEDS ORDERED: ENBREL25 MG (09:01)
== END 2021-08-11 10:21 | disposition home or self-care (01) ==
LOC: ORSCSDS 07:54
PROVIDERS: Internal Medicine Gastroenterology
PROC: 0DJ08ZZ Inspection of Upper Intestinal Tract, Via Natural or Artificial Opening Endoscopic (ICD-10-PCS; principal; 2021-08-11 09:30)
DX: B19.20 Unspecified viral hepatitis C without hepatic coma (principal); K74.60 Unspecified cirrhosis of liver; I86.4 Gastric varices; E05.00 Thyrotoxicosis with diffuse goiter without thyrotoxic crisis or storm; M06.9 Rheumatoid arthritis, unspecified; I10 Essential (primary) hypertension; Z80.0 Family history of malignant neoplasm of digestive organs; Z87.891 Personal history of nicotine dependence; G47.33 Obstructive sleep apnea (adult) (pediatric); Z79.899 Other long term (current) drug therapy; G62.9 Polyneuropathy, unspecified
CPT/HCPCS: J2704; J7120

== ENCOUNTER 2021-09-21 08:31 | Day surgery (SDC) | payer MEDICARE, OTHER ==
[~2021-09-21] VITALS: Ht 167.6 cm; Wt 71.6 kg
[~2021-09-21 08:31] MED LIST changes: +ALPR.5 PO; +ATIVAN0.5 MG; +ENBREL MIN50 MG/1 M1 SC; +ENBREL25 MG; +NADO20; +RIFA550T2 PO; +SIMPONI AR50 MG/4 M1; +SUBVENITE150 M1 PO; +Voltaren100 GM
[2021-09-21] MEDS ORDERED: LORA.5 (09:16)
--- NOTE | 2021-09-21 09:34 | NUR ---
09/21/21 0934 Isabella Charles PT. HAS PAIN TO RIGHT FOOT "7", RECENT SURGERY,CHRONIC BACK PAIN "8", LEFT ARM/ELBOW "8".
== END 2021-09-21 10:45 | disposition home or self-care (01) ==
LOC: ORSCSDS 08:31
PROVIDERS: Internal Medicine Gastroenterology
PROC: 0DJD8ZZ Inspection of Lower Intestinal Tract, Via Natural or Artificial Opening Endoscopic (ICD-10-PCS; principal; 2021-09-21 10:00)
DX: Z12.11 Encounter for screening for malignant neoplasm of colon (principal); Z86.010 Personal history of colon polyps; K64.8 Other hemorrhoids; K57.30 Diverticulosis of large intestine without perforation or abscess without bleeding; K74.60 Unspecified cirrhosis of liver; I10 Essential (primary) hypertension; B19.20 Unspecified viral hepatitis C without hepatic coma; G62.9 Polyneuropathy, unspecified; K76.6 Portal hypertension; K72.90 Hepatic failure, unspecified without coma; K59.09 Other constipation; G47.33 Obstructive sleep apnea (adult) (pediatric); J44.9 Chronic obstructive pulmonary disease, unspecified; Z87.891 Personal history of nicotine dependence; Z79.899 Other long term (current) drug therapy
CPT/HCPCS: J2704; J7120

== ENCOUNTER 2022-05-08 18:21 | Emergency (ER) | payer MEDICARE, OTHER ==
[~2022-05-08] VITALS: Ht 170.2 cm; Wt 71.7 kg
[~2022-05-08 18:21] MED LIST changes: +LORA.5
[2022-05-08] MEDS ORDERED: HYDMOR4 PO (20:01)
[2022-05-08] MEDS ORDERED: SEN-O-TAB8.6 MG PO (20:02)
[2022-05-08] MEDS ORDERED: CYCL10 PO (20:22)
== END 2022-05-08 20:30 | disposition home or self-care (01) ==
LOC: ER 18:21
DX: M25.512 Pain in left shoulder (principal); W05.1XXA Fall from non-moving nonmotorized scooter, initial encounter; Z88.8 Allergy status to other drugs, medicaments and biological substances; Z88.6 Allergy status to analgesic agent; Z79.899 Other long term (current) drug therapy; Z87.891 Personal history of nicotine dependence
CPT/HCPCS: 73030; 73070; A9270; J1170

== ENCOUNTER → 2022-05-17 | Outpatient (CLI) | payer MEDICARE, OTHER ==
[~2022-05-17] MED LIST changes: +HYDMOR4 PO; +SEN-O-TAB8.6 MG PO
== END ==
LOC: LAB SHORT 14:37 → LAB 14:37
DX: R30.0 Dysuria (principal)
CPT/HCPCS: 87077; 87086; 87186

== ENCOUNTER 2022-06-29 18:35 | Inpatient (IN) | payer OTHER, MEDICARE ==
[~2022-06-29] VITALS: Ht 170.2 cm; Wt 67.2 kg
[2022-06-29 23:13] LABS: BASOPHILS ABSOLUTE AUTO 0.06 K/mm3 (0.00-0.23); BASOPHILS PERCENT AUTO 1 % (0-2); EOSINOPHILS ABSOLUTE AUTO 0.21 K/mm3 (0.00-0.68); EOSINOPHILS PERCENT AUTO 2 % (0-6); Hematocrit 42.7 % (33.0-51.0); Hemoglobin 15.1 g/dL (11.5-16.0); IMMATURE GRAN ABSOLUTE AUTO 0.08 K/mm3 (0.00-0.10); IMMATURE GRAN PERCENT AUTO 1 % (0-1); LYMPHOCYTES ABSOLUTE AUTO 2.64 K/mm3 (0.84-5.20); LYMPHOCYTES PERCENT AUTO 21 % (21-46); MONOCYTES ABSOLUTE AUTO 0.83 K/mm3 (0.16-1.47); MONOCYTES PERCENT AUTO 7 % (4-13); Mean Corpuscular HGB 31.1 pg (26.0-34.0); Mean Corpuscular HGB Conc 35.4 g/dL (31.5-36.5); Mean Corpuscular Volume 88 fL (80-100); NEUTROPHILS ABSOLUTE AUTO 8.97 K/mm3 (1.96-9.15); NEUTROPHILS PERCENT AUTO 70 % (41-73); Platelet Count 227 K/mm3 (150-400); RDW Standard Deviation 38.4 fL (35.1-46.3); Red Blood Cell Count 4.86 M/mm3 (3.80-5.20); White Blood Cell Count 12.79 K/mm3 (4.00-11.30)
[2022-06-29 23:34] LABS: Albumin, Blood 3.9 g/dL (3.4-5.0); Bilirubin, Total 0.5 mg/dL (0.1-1.0); Bun/Creatinine Ratio 26.6 (12.0-20.0); Calcium, Blood 9.5 mg/dL (8.5-10.1); Creatinine, Blood 0.72 mg/dL (0.40-1.00); Globulin, Blood 4.1 g/dL (2.2-4.0); Potassium, Blood 3.8 mmol/L (3.5-5.5)
--- NOTE | 2022-06-30 01:50 | NUR ---
NEW ARRIVAL PT NEW ADMIT FROM ER. ARRIVED IN NO DISTRESS, ON 2L O2. LLE HAS CIRCULATION AND SENSATION INTACT. LLE NOT SHORTENED OR ROTATED. PT REPORTS INCREASING PAIN, AND IS REQUESTING A KELSEY CATHETER. PLAN TO CALL HOSPITALIST. BED IN LOW POSITION AND CALL LIGHT IN REACH.
[2022-06-30] MEDS ORDERED: TRAZ50 PO (01:53)
--- NOTE | 2022-06-30 04:33 | NUR ---
PT NEW ADMIT FROM ER. VSS. PT SLEPT ON AND OFF SINCE ARRIVNG TO THE FLOOR. ON 2L O2, PLANS FOR FAMILY TO BRING CPAP TODAY. LLE CIRCULATION AND SENSATION REMAINS INTACT. HAS REMAINED NPO SINCE ARRIVING TO THE FLOOR, SURGICAL WASHDOWN COMPLETE. PLAN FOR ORTHO TO CONSULT THE PT TODAY. THE PATIENT IS CURRENTLY SLEEPING, IN NO DISTRESS, CALL LIGHT IN REACH.
[2022-06-30 04:58] LABS: BASOPHILS ABSOLUTE AUTO 0.04 K/mm3 (0.00-0.23); BASOPHILS PERCENT AUTO 1 % (0-2); EOSINOPHILS ABSOLUTE AUTO 0.23 K/mm3 (0.00-0.68); EOSINOPHILS PERCENT AUTO 3 % (0-6); Hematocrit 37.4 % (33.0-51.0); Hemoglobin 13.1 g/dL (11.5-16.0); IMMATURE GRAN ABSOLUTE AUTO 0.04 K/mm3 (0.00-0.10); IMMATURE GRAN PERCENT AUTO 1 % (0-1); LYMPHOCYTES ABSOLUTE AUTO 1.97 K/mm3 (0.84-5.20); LYMPHOCYTES PERCENT AUTO 25 % (21-46); MONOCYTES ABSOLUTE AUTO 0.63 K/mm3 (0.16-1.47); MONOCYTES PERCENT AUTO 8 % (4-13); Mean Corpuscular Volume 89 fL (80-100); Mean Platelet Volume 11.1 fL (9.1-12.4); NEUTROPHILS ABSOLUTE AUTO 4.89 K/mm3 (1.96-9.15); NEUTROPHILS PERCENT AUTO 63 % (41-73); Platelet Count 164 K/mm3 (150-400); RDW Standard Deviation 38.5 fL (35.1-46.3); Red Blood Cell Count 4.22 M/mm3 (3.80-5.20)
[2022-06-30 05:26] LABS: Bun/Creatinine Ratio 25.4 (12.0-20.0); Calcium, Blood 8.1 mg/dL (8.5-10.1); Creatinine, Blood 0.71 mg/dL (0.40-1.00); Potassium, Blood 3.3 mmol/L (3.5-5.5)
[2022-06-30 09:17] LABS: Source, Urine Foley catheter
[2022-06-30 09:25] LABS: Appearance, Urine Clear (Clear); Bilirubin, Urine Neg (Neg); Blood, Urine 1+ (Neg); Color, Urine Yellow (P-Yellow); Glucose Qualitative, Urine Neg (Neg); Ketones, Urine Neg (Neg); Leukocyte Esterase, Urine Neg (Neg); Nitrite, Urine Neg (Neg); Protein, Urine 1+ (Neg); Urobilinogen, Urine NORM (Normal)
[2022-06-30 10:12] LABS: Bacteria Rare /hpf; Squamous Epithelial Cells Rare /hpf (Few)
--- NOTE | 2022-06-30 12:57 | NUR ---
THE PATIENT WAS BROUGHT TO DAY SURGERY FOR HER PROCEDURE.
--- NOTE | 2022-06-30 15:16 | NUR ---
PATIENT RETURNED TO ROOM FROM PACU ON BED. VSS, ON 2L O2. PATIENT REPORTS VERY MILD PAIN AT THIS TIME. X1 FOAM/GAUZE DRESSING TO LEFT HIP. PATIENT IS ABLE TO WIGGLE TOES APPROPRIATELY, GOOD PEDAL PULSES & CAP REFILL. LUNGS CLEAR. CALL LIGHT IN REACH.
--- NOTE | 2022-06-30 17:41 | NUR ---
SHIFT SUMMARY POD 0 LEFT HIP PINNING. X1 BULKY DRESSING TO LEFT HIP, C/D/I. PATIENT WBAT WHEN UP, NOT YET OOB SINCE SURGERY. KELSEY IN [place], DRAINING YELLOW URINE. EATING & DRINKING WELL, DENIES N/V. MANAGING PAIN PER EMAR. CALLS APPROPRIATELY, IN REACH.
--- NOTE | 2022-07-01 04:23 | NUR ---
POD1 LEFT HIP PINNING. CIRCULATION AND SENSATION REMAINS INTACT IN LLE. DRESSING REMAINS C/D/I, AWAITING SURGEON TO DO FIRST DRESSING CHANGE. VSS, HR NOTED TO BE BRADYCARDIC AT TIMES BUT PT REMAINS ASYMPTOMATIC. PT SLEPT WELL T/O THE NIGHT. MEDICATED FOR PAIN WITH OXY AND TYLENOL. KELSEY REMAINS IN PLACE, DRAINING TO GRAVITY. YELLOW CLEAR URINE PRESENT. PT DID NOT GET OOB TONIGHT, BUT WAS ABLE TO REPOSITION SELF IN BED. PLAN FOR PT TO WORK WITH PT/OT TODAY. THE PATIENT IS CURRENTLY SLEEPING, IN NO DISTRESS, CALL LIGHT IN REACH.
[2022-07-01 05:26] LABS: BASOPHILS ABSOLUTE AUTO 0.02 K/mm3 (0.00-0.23); BASOPHILS PERCENT AUTO 0 % (0-2); EOSINOPHILS ABSOLUTE AUTO 0.01 K/mm3 (0.00-0.68); EOSINOPHILS PERCENT AUTO 0 % (0-6); Hematocrit 37.7 % (33.0-51.0); Hemoglobin 13.1 g/dL (11.5-16.0); IMMATURE GRAN ABSOLUTE AUTO 0.06 K/mm3 (0.00-0.10); IMMATURE GRAN PERCENT AUTO 1 % (0-1); LYMPHOCYTES ABSOLUTE AUTO 1.46 K/mm3 (0.84-5.20); LYMPHOCYTES PERCENT AUTO 14 % (21-46); MONOCYTES ABSOLUTE AUTO 0.49 K/mm3 (0.16-1.47); MONOCYTES PERCENT AUTO 5 % (4-13); Mean Corpuscular HGB 31.1 pg (26.0-34.0); Mean Corpuscular HGB Conc 34.7 g/dL (31.5-36.5); Mean Corpuscular Volume 90 fL (80-100); Mean Platelet Volume 11.4 fL (9.1-12.4); NEUTROPHILS ABSOLUTE AUTO 8.74 K/mm3 (1.96-9.15); NEUTROPHILS PERCENT AUTO 81 % (41-73); Platelet Count 174 K/mm3 (150-400); RDW Standard Deviation 39.3 fL (35.1-46.3); Red Blood Cell Count 4.21 M/mm3 (3.80-5.20); White Blood Cell Count 10.78 K/mm3 (4.00-11.30)
[2022-07-01 06:01] LABS: Bun/Creatinine Ratio 18.4 (12.0-20.0); Calcium, Blood 8.3 mg/dL (8.5-10.1); Creatinine, Blood 0.6 mg/dL (0.40-1.00); Magnesium, Blood 2.5 mg/dL (1.6-2.4); Potassium, Blood 3.9 mmol/L (3.5-5.5)
--- NOTE | 2022-07-01 15:26 | NUR ---
PT DECLINED BLOOD THINNERS PT DECLINED LOVENOX R/T HX OF ESOPHAGEAL VARICES. PT PROVIDED WITH EDUCATION ABOUT THE RISK OF NOT TAKING BLOOD THINNERS AFTER SURGERY. DR. YARBROUGH NOTIFIED THAT PT DECLINED BLOOD THINNERS.
--- NOTE | 2022-07-01 19:07 | NUR ---
SHIFT SUMMARY PT IS POD#0 FROM I&D OF L ANKLE. PT DENIES PAIN. PT IS ALERT AND ORIENTED X4. 1 ASSIST WHEN OOB. PT TOLERATING PO. WILL MONITOR UNTIL REPORT TO NOC RN.
--- NOTE | 2022-07-01 19:52 | NUR ---
SHIFT SUMMARY PT IS POD#1 FROM L HIP PINNING WITH DR. MARIN. PAIN MANAGED WITH PO PAIN MEDICATION. PT IS A 1 ASSIST. PLAN FOR DC TO HOME WITH HOME HEALTH TOMORROW.
--- NOTE | 2022-07-02 05:09 | NUR ---
SHIFT SUMMARY PT A&OX4, AND COOPERATIVE WITH CARE. NO ACUTE CHANGES, VSS. MEDICATING FOR PAIN PER EMAR. POD 2 L HIP PINNING. 1 ASSIST WITH FWW/GB TO BATHROOM, VOIDING WELL. TOLERATING PO INTAKE. DRESSING TO L HIP C/D/I. CALL LIGHT WITHIN REACH. PLAN IS TO DC HOME WITH HOME HEALTH TODAY.
[2022-07-02] MEDS ORDERED: OXAYDO5 M1 PO (14:33)
[2022-07-02] MEDS ORDERED: ACET325 PO (14:34)
--- NOTE | 2022-07-02 15:29 | NUR ---
DISCHARGE POD 2 L HIP PINNING PT PAIN CONTROLLED PER EMAR, SHE IS USING TYLENOL AND OXYCODONE. SHE WAS ABLE TO WORK WELL WITH THERAPY USING ONLY TYLENOL FOR PAIN CONTROL. PATIENT AMBULATING USING FWW. TOLERATING PO, NO SIGNS OF RESPIRATORY DISRESS FROM FLU. TAMIFLU GIVEN. DRESSING CHANGED TO AQUACEL PRIOR TO DISCHARGE, EXTRA DRESSINGS PROVIDED. ALL INSTRUCTIONS GONE OVER WITH PATIENT. PRESCRIPTION GIVEN TO PATIENT.
== END 2022-07-02 15:30 | disposition home health service (06) | DRG 481 ==
LOC: ER 18:35 → SURS 06-30 00:30
PROVIDERS: Internal Medicine; Orthopaedic Surgery; Physician Assistant; ADMIT Family Medicine
PROC: 0QS734Z Reposition Left Upper Femur with Internal Fixation Device, Percutaneous Approach (ICD-10-PCS; principal; 2022-06-30 12:30)
DX: S72.012A Unspecified intracapsular fracture of left femur, initial encounter for closed fracture (principal); E87.1 Hypo-osmolality and hyponatremia; Z28.21 Immunization not carried out because of patient refusal; B19.20 Unspecified viral hepatitis C without hepatic coma; F43.10 Post-traumatic stress disorder, unspecified; M21.052 Valgus deformity, not elsewhere classified, left hip; M54.9 Dorsalgia, unspecified; E03.9 Hypothyroidism, unspecified; D72.828 Other elevated white blood cell count; G89.29 Other chronic pain; Z98.1 Arthrodesis status; Z98.51 Tubal ligation status; Z90.710 Acquired absence of both cervix and uterus; Z98.890 Other specified postprocedural states; Z79.899 Other long term (current) drug therapy; Z87.891 Personal history of nicotine dependence; W01.190A Fall on same level from slipping, tripping and stumbling with subsequent striking against furniture, initial encounter
CPT/HCPCS: 36415; 73502; 73560-LT; 73700; 80048; 80053; 81001; 83735; 85025; 94640; 94660; 94664; 94762; 96374; 96375; 96376; 97110; 97116; 97161; 97530; 99285-25; A9270; C1713; C1769; J0690; J1100; J1170; J1885; J2270; J2370; J2405; J2704; J3010; J3480; J7030; J7050; J7120

== ENCOUNTER → 2022-10-11 | Outpatient (CLI) | payer MEDICARE, OTHER ==
[~2022-10-11] MED LIST changes: +ACET325 PO; +OXAYDO5 M1 PO
== END | disposition home or self-care (01) ==
LOC: LAB 16:20 → LAB SHORT 16:20
DX: N39.0 Urinary tract infection, site not specified (principal)
CPT/HCPCS: 87077; 87086; 87186

== ENCOUNTER → 2022-12-10 | Outpatient (CLI) | payer MEDICARE, OTHER | END | disposition home or self-care (01) | LOC: LAB 15:04 → LAB SHORT 15:04 | DX: R82.79 Other abnormal findings on microbiological examination of urine (principal) | CPT/HCPCS: 87086 ==

== ENCOUNTER → 2023-02-07 | Outpatient (CLI) | payer MEDICARE, OTHER ==
[2023-02-08 10:53] LABS: Candida species (DNA Probe) Negative (NEGATIVE); G. vaginalis (DNA Probe) Negative (NEGATIVE); T. vaginalis (DNA Probe) Negative (NEGATIVE)
== END | disposition home or self-care (01) ==
LOC: LAB 17:00 → LAB SHORT 17:00
PROVIDERS: Family Medicine
DX: N39.0 Urinary tract infection, site not specified (principal); N89.8 Other specified noninflammatory disorders of vagina
CPT/HCPCS: 87086; 87480; 87510; 87660

== ENCOUNTER → 2023-03-01 | Outpatient (CLI) | payer MEDICARE, OTHER ==
[2023-03-02 11:51] LABS: Candida species (DNA Probe) Negative (NEGATIVE); G. vaginalis (DNA Probe) Positive (NEGATIVE); T. vaginalis (DNA Probe) Positive (NEGATIVE)
== END | disposition home or self-care (01) ==
LOC: LAB 15:31 → LAB SHORT 15:31
PROVIDERS: Registered Nurse Community Health
DX: N89.8 Other specified noninflammatory disorders of vagina (principal)
CPT/HCPCS: 87480; 87510; 87660

== ENCOUNTER → 2023-03-22 | Outpatient (CLI) | payer MEDICARE, OTHER | END | disposition home or self-care (01) | LOC: LAB SHORT 19:00 → LAB 19:00 | DX: N89.8 Other specified noninflammatory disorders of vagina (principal) | CPT/HCPCS: 87070; 87205 ==

== ENCOUNTER → 2023-04-25 | Outpatient (CLI) | payer MEDICARE, OTHER ==
[2023-04-26 11:33] LABS: Candida species (DNA Probe) Negative (NEGATIVE); G. vaginalis (DNA Probe) Positive (NEGATIVE); T. vaginalis (DNA Probe) Negative (NEGATIVE)
== END | disposition home or self-care (01) ==
LOC: LAB SHORT 16:20 → LAB 16:20
PROVIDERS: Registered Nurse Community Health
DX: N89.8 Other specified noninflammatory disorders of vagina (principal); R30.0 Dysuria
CPT/HCPCS: 87077; 87086; 87186; 87480; 87510; 87660

== ENCOUNTER → 2023-08-02 | Outpatient (CLI) | payer MEDICARE, OTHER ==
[2023-08-03 12:24] LABS: Candida species (DNA Probe) Negative (NEGATIVE); G. vaginalis (DNA Probe) Negative (NEGATIVE); T. vaginalis (DNA Probe) Negative (NEGATIVE)
== END ==
LOC: LAB 17:10 → LAB SHORT 17:10
PROVIDERS: Registered Nurse Community Health
DX: R30.0 Dysuria (principal); N89.8 Other specified noninflammatory disorders of vagina
CPT/HCPCS: 87086; 87480; 87510; 87660

== ENCOUNTER → 2023-10-18 | Outpatient (CLI) | payer MEDICARE, OTHER ==
[~2023-10-18] MED LIST changes: -ACET325 PO; +ACET500; +ATOR10 PO; +ENBREL SUR50 MG/1 M1 SC; +ESTRADIOL0.5 MG; +FOSAMAX70 MG PO; -RIFA550T2 PO; +TRIDERM28.4 GM; +VOLTAREN ARTHRI20 GM TOP; +XIFAXAN550 MG
== END | disposition home or self-care (01) ==
LOC: LAB SHORT 14:30 → LAB 14:30
DX: R30.0 Dysuria (principal)
CPT/HCPCS: 87077; 87086; 87186

== ENCOUNTER → 2023-11-12 | Outpatient (CLI) | payer MEDICARE, OTHER | END | disposition home or self-care (01) | LOC: LAB SHORT 18:51 → LAB 18:51 | DX: N64.3 Galactorrhea not associated with childbirth (principal) | CPT/HCPCS: 84146 ==

== ENCOUNTER → 2023-12-28 | Outpatient (CLI) | payer MEDICARE, OTHER ==
[2023-12-28 20:42] LABS: Albumin, Blood 3.6 g/dL (3.4-5.0); Albumin/Globulin Ratio 0.9 (0.8-1.8); Bilirubin, Total 0.4 mg/dL (0.1-1.0); Bun/Creatinine Ratio 21.3 (12.0-20.0); Calcium, Blood 9.1 mg/dL (8.5-10.1); Creatinine, Blood 0.56 mg/dL (0.40-1.00); Globulin, Blood 3.8 g/dL (2.2-4.0); Potassium, Blood 3.5 mmol/L (3.5-5.5); Total Protein, Blood 7.4 g/dL (6.4-8.2)
[2023-12-28 21:09] LABS: BASOPHILS ABSOLUTE AUTO 0.06 K/mm3 (0.00-0.23); BASOPHILS PERCENT AUTO 1 % (0-2); EOSINOPHILS ABSOLUTE AUTO 0.24 K/mm3 (0.00-0.68); EOSINOPHILS PERCENT AUTO 3 % (0-6); Hematocrit 36.5 % (33.0-51.0); Hemoglobin 12.6 g/dL (11.5-16.0); IMMATURE GRAN ABSOLUTE AUTO 0.03 K/mm3 (0.00-0.10); IMMATURE GRAN PERCENT AUTO 0 % (0-1); LYMPHOCYTES ABSOLUTE AUTO 1.57 K/mm3 (0.84-5.20); LYMPHOCYTES PERCENT AUTO 17 % (21-46); MONOCYTES ABSOLUTE AUTO 0.54 K/mm3 (0.16-1.47); MONOCYTES PERCENT AUTO 6 % (4-13); Mean Corpuscular HGB 33.2 pg (26.0-34.0); Mean Corpuscular HGB Conc 34.5 g/dL (31.5-36.5); Mean Corpuscular Volume 96 fL (80-100); NEUTROPHILS ABSOLUTE AUTO 6.58 K/mm3 (1.96-9.15); NEUTROPHILS PERCENT AUTO 73 % (41-73); RDW Coefficient Variation 11.9 % (11.7-14.2); RDW Standard Deviation 41.4 fL (35.1-46.3); White Blood Cell Count 9.02 K/mm3 (4.00-11.30)
[2023-12-28 22:03] LABS: Platelet Count 140 K/mm3 (150-400)
== END ==
LOC: LAB SHORT 18:30 → LAB 18:30
PROVIDERS: Student in an Organized Health Care Education/Training Program
DX: J20.9 Acute bronchitis, unspecified (principal)
CPT/HCPCS: 80053; 85025

== ENCOUNTER → 2024-01-31 | Outpatient (CLI) | payer MEDICARE, OTHER | END | disposition home or self-care (01) | LOC: LAB 18:01 → LAB SHORT 18:01 | DX: R30.0 Dysuria (principal) | CPT/HCPCS: 87077; 87086; 87186 ==

== ENCOUNTER 2024-03-27 11:13 | Emergency (ER) | payer MEDICARE, OTHER ==
[~2024-03-27] VITALS: Ht 170.2 cm; Wt 71.7 kg
[2024-03-27 11:21] VITALS: BP 122/46
[2024-03-27] MEDS ORDERED: Acetaminophen 500 MG Tab PO ONE (11:25)
[2024-03-27] MEDS ORDERED: HYDROcodone 5-APAP 325 TAB PO ONE (11:40)
[2024-03-27] MEDS ORDERED: Lidocaine 4% 1 Patch TOP ONE (12:45)
[2024-03-27] MEDS ORDERED: LIDO700A20 TOP (12:54)
[2024-03-27] MEDS ORDERED: HYDR1TAB94 PO (12:54)
== END 2024-03-27 13:10 | disposition home or self-care (01) ==
LOC: ER 11:13
DX: S20.212A Contusion of left front wall of thorax, initial encounter (principal); F43.10 Post-traumatic stress disorder, unspecified; W18.30XA Fall on same level, unspecified, initial encounter; Z87.891 Personal history of nicotine dependence; Z79.899 Other long term (current) drug therapy; Z88.6 Allergy status to analgesic agent; Z88.8 Allergy status to other drugs, medicaments and biological substances
CPT/HCPCS: 71101; 99283-25; A9270

== ENCOUNTER → 2024-04-16 | Outpatient (CLI) | payer MEDICARE, OTHER ==
[~2024-04-16] MED LIST changes: +LIDO700A20 TOP
== END ==
LOC: LAB 18:03 → LAB SHORT 18:03
DX: R30.0 Dysuria (principal)
CPT/HCPCS: 87077; 87086; 87186

== ENCOUNTER → 2024-05-01 | Outpatient (CLI) | payer MEDICARE, OTHER ==
[2024-05-02 12:25] LABS: Bacterial Vaginosis PCR Negative (NEGATIVE); Candida Group, PCR NOT DETECTED (NOT DETECT); Candida glabrata-krusei, PCR NOT DETECTED (NOT DETECT)
[2024-05-02 13:01] LABS: Chlamydia Trachomatis Vaginal NOT DETECTED (NOT DETECT); Neisseria Gonorrhoea Vaginal NOT DETECTED (NOT DETECT)
== END ==
LOC: LAB 17:26 → LAB SHORT 17:26
PROVIDERS: Student in an Organized Health Care Education/Training Program
DX: N89.8 Other specified noninflammatory disorders of vagina (principal); Z72.51 High risk heterosexual behavior
CPT/HCPCS: 86592; 87481; 87491; 87591; 87661; 87801

== ENCOUNTER → 2024-11-13 | Outpatient (CLI) | payer OTHER | LOC: LAB SHORT 18:57 → LAB 18:57 | DX: R30.0 Dysuria (principal) ==

== ENCOUNTER → 2025-01-29 | Outpatient (CLI) | payer OTHER ==
[2025-01-29 18:18] LABS: Bacterial Vaginosis PCR Negative (NEGATIVE); Candida Group, PCR NOT DETECTED (NOT DETECT)
[2025-01-29 18:26] LABS: Influenza A/2009-H1 Not Detected (NOT DETECT); SARS-Cov-2 (COVID-19), BioFire Not Detected (NOT DETECT)
[2025-01-29 18:56] LABS: Chlamydia Trachomatis Vaginal NOT DETECTED (NOT DETECT); Neisseria Gonorrhoea Vaginal NOT DETECTED (NOT DETECT)
[2025-01-29 23:41] LABS: Candida glabrata-krusei, PCR DETECTED (NOT DETECT)
== END ==
LOC: LAB 15:27 → LAB SHORT 15:27
PROVIDERS: Student in an Organized Health Care Education/Training Program
DX: J06.9 Acute upper respiratory infection, unspecified (principal); N89.8 Other specified noninflammatory disorders of vagina; R30.0 Dysuria; Z72.51 High risk heterosexual behavior
CPT/HCPCS: 0202U; 81515; 87077; 87086; 87186; 87335; 87491; 87591

== ENCOUNTER → 2025-03-10 | Outpatient (CLI) | payer OTHER ==
[2025-03-10 19:28] LABS: Bacterial Vaginosis PCR Negative (NEGATIVE); Candida Group, PCR NOT DETECTED (NOT DETECT); Candida glabrata-krusei, PCR NOT DETECTED (NOT DETECT)
[2025-03-10 19:57] LABS: Chlamydia Trachomatis Vaginal NOT DETECTED (NOT DETECT); Neisseria Gonorrhoea Vaginal NOT DETECTED (NOT DETECT)
== END ==
LOC: LAB 17:08 → LAB SHORT 17:08
PROVIDERS: Student in an Organized Health Care Education/Training Program
DX: N39.0 Urinary tract infection, site not specified (principal); N89.8 Other specified noninflammatory disorders of vagina; R30.0 Dysuria
CPT/HCPCS: 81515; 87077; 87086; 87186; 87491; 87591

== ENCOUNTER → 2025-03-31 | Outpatient (CLI) | payer OTHER | END | disposition home or self-care (01) | LOC: LAB SHORT 17:30 → LAB 17:30 | DX: J06.9 Acute upper respiratory infection, unspecified (principal) | CPT/HCPCS: 87081 ==

== ENCOUNTER → 2025-04-02 | Outpatient (CLI) | payer OTHER ==
[2025-04-02 19:04] LABS: Bacterial Vaginosis PCR Negative (NEGATIVE); Candida Group, PCR NOT DETECTED (NOT DETECT); Candida glabrata-krusei, PCR NOT DETECTED (NOT DETECT)
[2025-04-02 19:37] LABS: Chlamydia Trachomatis Vaginal NOT DETECTED (NOT DETECT); Neisseria Gonorrhoea Vaginal NOT DETECTED (NOT DETECT)
== END ==
LOC: LAB SHORT 14:35 → LAB 14:35
PROVIDERS: Student in an Organized Health Care Education/Training Program
DX: N89.8 Other specified noninflammatory disorders of vagina (principal); J06.9 Acute upper respiratory infection, unspecified
CPT/HCPCS: 81515; 87491; 87591

== ENCOUNTER → 2025-04-28 | Outpatient (CLI) | payer OTHER | LOC: LAB 15:43 → LAB SHORT 15:43 | DX: N39.0 Urinary tract infection, site not specified (principal) | CPT/HCPCS: 87077; 87086; 87186 ==

== ENCOUNTER → 2025-06-18 | Outpatient (CLI) | payer OTHER | LOC: LAB SHORT 13:20 → LAB 13:20 | DX: N30.00 Acute cystitis without hematuria (principal) | CPT/HCPCS: 87077; 87086; 87186; 87335 ==